=== PATIENT | female | born 1985 | race Caucasian/White ===

== ENCOUNTER → 2020-06-12 | Outpatient (CLI) | payer OTHER ==
--- NOTE | 2020-06-12 15:19 | US ---
EXAMINATION TYPE: Transabdominal DATE OF EXAM: 06/12/2020 2:53 PM COMPARISON: NONE CLINICAL HISTORY: O76 absent heart tones. EXAM PERFORMED: Transabdominal (TA) EXAM MEASUREMENTS: GESTATIONAL AGE / DATING Physician Established: (11 weeks/ 6day) EDC: 12/26/2020 Dates by LMP: (12 weeks/1 day) EDC: 12/24/2020 Dates by First Scan: No previous here Dates by Current Scan for: non viable IUP (11 weeks/1 day) MATERNAL ANATOMY Uterus: 14.9 x 7.8 x 6.9cm; two uterine fibroids seen MELINA: right myometrial fibroid = 4.1x 2.9 x 2.1c m; left myometrial fibroid = 3.5 x 4.1 x 2.8cm Right Ovary: not seen Left Ovary: 2.2 x 2.4 x 2.1cm Post CDS / Adnexa: wnl Presence of free fluid: no Presence of corpus luteal cyst: in left ovary = 1.4 x 13 x 1.2cm Presence of subchorionic bleed: hypoechoic area seen superior to gestational sac = 5.1 x 4.7 x 1.7cm GESTATION / SURVEY CRL: 4.3cm (11 weeks/1 day) Heart Rate: none detected by M Mode, PW Doppler, no color flow or Power color is seen in any elsy dy cavity Date of LMP: unsure Beta HcG (if available): NA Single intrauterine gestation with visualization of gestational sac and pole. No yolk sac seen. Low-lying gestational sac and pole with absent heart tones are consistent with intrauterine fe carroll demise. No free fluid. Probable corpus luteal cyst left ovary. Right ovary not seen with certainty. IMPRESSION: Findings consistent with intrauterine demise as detailed above.
== END | disposition home or self-care (01) ==
LOC: RADUSWWP 14:34
PROVIDERS: ATTEND Obstetrics & Gynecology
DX: O70.0 First degree perineal laceration during delivery (principal)
CPT/HCPCS: 76801

== ENCOUNTER → 2020-06-16 | Outpatient (CLI) | payer OTHER ==
[2020-06-16 10:06] LABS: Basophils % (A) 1 %; Eosinophils # (A) 0.2 k/uL (0-0.7); Eosinophils % (A) 2 %; HCT 41.8 % (34.0-46.0); HGB 13.7 gm/dL (11.4-16.0); Lymphocytes # (A) 2.2 k/uL (1.0-4.8); Lymphocytes % (A) 30 %; MCH 31.1 pg (25.0-35.0); MCHC 32.6 g/dL (31.0-37.0); MCV 95.3 fL (80.0-100.0); Mean Platelet Volume 6.6; Monocytes # (A) 0.4 k/uL (0-1.0); Monocytes % (A) 6 %; Neutrophils # (A) 4.4 k/uL (1.3-7.7); Neutrophils % (A) 60 %; Platelet Count 270 k/uL (150-450); RBC 4.39 m/uL (3.80-5.40); RDW 13.8 % (11.5-15.5); WBC 7.4 k/uL (3.8-10.6)
== END | disposition home or self-care (01) ==
LOC: LABPAT 09:15
PROVIDERS: ATTEND Obstetrics & Gynecology
DX: Z01.812 Encounter for preprocedural laboratory examination (principal); O02.1 Missed abortion; Z3A.00 Weeks of gestation of pregnancy not specified
CPT/HCPCS: 36415; 85025

== ENCOUNTER 2020-06-17 10:39 | Day surgery (SDC) | payer OTHER ==
[2020-06-13 09:34] VITALS: BMI 31.9
[~2020-06-17 10:39] MED LIST: DEXAMETHASONE SOD PHOSPHATE 4 MG/ML 1 ML VIAL IV ONE; HYDROmorphone 0.5 MG/0.5 ML SYRINGE IVP PRN; LACTATED RINGERS 1,000 ML IV SCH; ONDANSETRON 4 MG/2 ML VIAL IVP ONE; Pre Op ABX Message 1 EACH MISC MISCELLANE ONE; SCOPOLAMINE 1.5MG/72HR PATCH TRANSDERM ONE
[2020-06-17] MEDS ORDERED: LIDOCAINE 1% (10MG/ML) FOR IV START INTRADERMA ONE (11:42)
[2020-06-17] MEDS: MIDAZOLAM 2 MG/2 ML VIAL IV PRN ×2 (11:55→12:23)
--- NOTE | 2020-06-17 12:17 | P.PN ---
Progress Note - Text Progress Note Date: 06/17/20 Addendum to history and physical preoperative: The patient was seen on examining and counseled by myself on preoperatively and I agree with the H&P as documented by the physician's speech language assistant.
[2020-06-17] MEDS ORDERED: PHENYLEPHRINE-0.9% NACL SYG 1,000 MCG/10 ML SYRINGE ONE (12:25)
[2020-06-17] MEDS ORDERED: METHYLERGONOVINE 0.2 MG/ML 1 ML AMP ONE (12:25)
[2020-06-17] MEDS ORDERED: fentaNYL (PF) 50 MCG/ML 2 ML AMP ONE (12:25)
[2020-06-17] MEDS ORDERED: LIDOCAINE 1% INJ 10MG/ML (20 ML MDV) ONE (12:25)
[2020-06-17] MEDS ORDERED: PROPOFOL 10 MG/ML 20 ML VIAL IV ONE (12:25)
[2020-06-17] MEDS ORDERED: LIDOCAINE 1%-EPI 1:100,000 20 ML VIAL SUBMUCOSAL ONE ×2 (12:29→12:52)
[2020-06-17] MEDS ORDERED: Rhogam IMMUNE GLOBULIN 1,500 UNIT/1 ML IM ONE (13:11)
--- NOTE | 2020-06-17 13:16 | P.OP ---
Date of Procedure: 06/17/20 Preoperative Diagnosis: Missed at 12 weeks gestation Postoperative Diagnosis: Same Procedure(s) Performed: Suction dilation and curettage Anesthesia: [facility] Surgeon: Gissell Gaspar Estimated Blood Loss (ml): 100 IV fluids (ml): 500 Urine output (ml): 100 Pathology: other (Uterine contents) Condition: stable Disposition: PACU Operative Findings: On exam under anesthetic the uterus was larger than anticipated, approximately 14-15 week size. Uterine sound to 14 cm. Appropriate products of conception were obtained and suction D&C. Description of Procedure: After the patient was met in the preoperative holding area and all questions were answered, she was taken to the operating room where anesthetic was administered without incident. She was then positioned prepped and draped in the dorsal lithotomy position. Bladder was drained for 100 mL of clear urine. Exam under anesthetic was undertaken and the uterus was approximately 14-15 weeks' size. Speculum was placed in the vagina and the cervix was grasped anteriorly with a single-tooth tenaculum. Paracervical block with lidocaine plus epinephrine was placed. The uterus sounded to 14+ centimeters. The the cervix was then sequentially dilated with Hegar dilators to allow for passage of the 10-Setswana curved suction curet. The suction curet was introduced and the uterus was circumferentially suction curettaged. A large amount of tissue consistent with gestational age was obtained after multiple passes. The suction curet was then removed and multiple passes a sharp banjo curette was undertaken with minimal additional tissue obtained. Final pass with the suction curette was undertaken with minimal blood and tissue obtained. The curet was then removed and the cervix was then observed. No active bleeding was noted. Based on the greater than anticipated size of the uterus she was administered Methergine 0.25 mg IM 1 for the uterine tone. Patient was awoken from anesthetic without incident and transported recovery in good condition. Next Patient's blood type is A- and are RhIG is ordered.
[2020-06-17 13:22] VITALS: TEMP 97.2
[2020-06-17] MEDS ORDERED: LACTATED RINGERS 1,000 ML IV ONE (14:07)
[2020-06-17 14:29] VITALS: RESP 20
[2020-06-17 14:33] VITALS: BP 120/68; PULSE 92
== END 2020-06-17 14:51 | disposition home or self-care (01) ==
LOC: OR 10:39
PROVIDERS: ATTEND Obstetrics & Gynecology
DX: O02.1 Missed abortion (principal); Z3A.12 12 weeks gestation of pregnancy; Z83.6 Family history of other diseases of the respiratory system; Z82.49 Family history of ischemic heart disease and other diseases of the circulatory system; Z80.0 Family history of malignant neoplasm of digestive organs; Z80.41 Family history of malignant neoplasm of ovary
CPT/HCPCS: 86900; 86901; 88305; 86850; 59820; J2791; J2250; J1100; J2210; J2405; J2001; J3010; J2370; J2704

== ENCOUNTER 2021-04-15 16:30 | Inpatient (IN) | payer OTHER ==
[2021-04-15] MEDS ORDERED: DINOPROSTONE 10 MG INSERT.ER VAGINAL ONE (16:59)
[2021-04-15] MEDS ORDERED: LACTATED RINGERS 1,000 ML IV SCH (16:59)
[2021-04-15] MEDS ORDERED: BUTORPHANOL 1 MG/ML 1 ML VIAL IV PRN (16:59)
[2021-04-15] MEDS ORDERED: TERBUTALINE 1 MG/ML VIAL SQ PRN (17:25)
[2021-04-15] MEDS ORDERED: OXYTOCIN 10 UNIT/ML 1 ML VIAL IM PRN (17:25)
[2021-04-15] MEDS ORDERED: LIDOCAINE 1% (PF) 10 MG/ML (30 ML SDV) SQ PRN (17:25)
[2021-04-15] MEDS ORDERED: CARBOPROST TROMETHAMINE 250 MCG/ML 1 ML AMP IM PRN (17:25)
[2021-04-15] MEDS ORDERED: METHYLERGONOVINE 0.2 MG/ML 1 ML AMP IM PRN (17:25)
--- NOTE | 2021-04-15 17:25 | P.HPOB ---
History of Present Illness H&P Date: 04/15/21 Chief Complaint: -induced hypertension This is a 35-year-old 2 para 0010 woman who has an estimated due date of 04/22/2021. She is admitted at 39 weeks gestation for induction of labor secondary to -induced hypertension. She developed increasing blood pressures in the third trimester. She has been ruled out for superimposed preeclampsia. She takes labetalol 100 mg twice a day and her home blood pressures typically ranged in the 130s over 70s. She is also known group B strep positive and Rh-. Her cervix is unfavorable therefore she is being admitted for Cervidil ripening on in anticipation of a Pitocin induction of labor tomorrow morning. Her obstetric history is significant for a first trimester miscarriage with suction D&C in June 2020. Laboratory data: Blood type A-, antibody screen negative, rubella immune, VDRL nonreactive, hepatitis B surface antigen negative, HIV negative, gonorrhea and clinic cultures negative, glucose tolerance testing within normal limits, group B strep positive. She did receive Rh Ig On admission, blood pressure is 136/74. She reports feeling well. No headache or visual changes. No increase in lower extremity swelling or abdominal pain. She has had some occasional contractions and good movement. She denies leakage of fluids or vaginal bleeding. On examination the cervix is 1 cm dilated, 50% effaced and the vertex is in the -3 station. Cervidil is placed posterior to the cervix per protocol. status is currently category 2 heart tones with good variability and no decelerations however not a definitively reactive NST yet. Review of Systems All systems: negative Past Medical History Past Medical History: No Reported History History of Any Multi-Drug Resistant Organisms: None Reported Additional Past Surgical History / Comment(s): Suction D&C 2020 Past Anesthesia/Blood Transfusion Reactions: Motion Sickness Additional Past Anesthesia/Blood Transfusion Reaction / Comment(s): FIRST ANESTHESIA Smoking Status: Never smoker - Past Family History Mother Family Medical History: Deep Vein Thrombosis (DVT) Medications and Allergies Home Medications Medication Instructions Recorded Confirmed Type Aspirin [Adult Low Dose Aspirin EC] 81 mg PO DAILY 04/15/21 04/15/21 History Labetalol HCl 100 mg PO BID 04/15/21 04/15/21 History Allergies Allergy/AdvReac Type Severity Reaction Status Date / Time No Known Allergies Allergy Verified 04/15/21 16:57 Exam Intake and Output 04/15/21 04/15/21 04/15/21 06:59 14:59 22:59 Other: Weight 127.913 kg See HPI Assessment and Plan (1) 39 weeks gestation of Current Visit: Yes Status: Acute Code(s): Z3A.39 - 39 WEEKS GESTATION OF SNOMED Code(s): 32626230 (2) Advanced maternal age (AMA) in Current Visit: Yes Status: Acute Code(s): NEA2114 - SNOMED Code(s): 515400632 (3) GBS (group B Streptococcus carrier), +RV culture, currently Current Visit: Yes Status: Acute Code(s): O99.820 - STREPTOCOCCUS B CARRIER STATE COMPLICATING SNOMED Code(s): 2076241325122 (4) induced hypertension Current Visit: Yes Status: Acute Code(s): O13.9 - GESTATIONAL HTN W/O SIGNIFICANT PROTEINURIA, UNSP TRIMESTER SNOMED Code(s): 13427123 (5) Rh negative, maternal Current Visit: Yes Status: Acute Code(s): O26.899 - OTH RELATED CONDITIONS, UNSPECIFIED TRIMESTER; Z67.91 - UNSPECIFIED BLOOD TYPE, RH NEGATIVE SNOMED Code(s): 182196155 Plan: 35-year-old 2 para 0010 woman admitted at 39 weeks gestation for cervical ripening head of Pitocin induction of labor indicated for - induced hypertension with no evidence of superimposed preeclampsia. She is group B strep positive and group B strep prophylactic antibiotics will be initiated on with onset of active labor, rupture of membranes or with initiation of Pitocin as indicated.
[2021-04-15 17:41] LABS: Basophils % (A) 0 %; Eosinophils # (A) 0.1 k/uL (0-0.7); Eosinophils % (A) 1 %; HCT 39.9 % (34.0-46.0); HGB 13.1 gm/dL (11.4-16.0); Lymphocytes # (A) 1.6 k/uL (1.0-4.8); Lymphocytes % (A) 18 %; MCH 30.9 pg (25.0-35.0); MCHC 32.7 g/dL (31.0-37.0); MCV 94.3 fL (80.0-100.0); Mean Platelet Volume 6.9; Monocytes # (A) 0.4 k/uL (0-1.0); Monocytes % (A) 5 %; Neutrophils # (A) 6.6 k/uL (1.3-7.7); Neutrophils % (A) 73 %; Platelet Count 269 k/uL (150-450); RBC 4.24 m/uL (3.80-5.40); RDW 13.6 % (11.5-15.5)
[2021-04-16] MEDS ORDERED: PENICILLIN G POTASSIUM 5,000,000 UNIT in DEXTROSE 5% IN WATER 100 ML IVPB ONE ×2 (06:00)
[2021-04-16] MEDS: LACTATED RINGERS 1,000 ML IV SCH ×3 (06:36→15:22)
[2021-04-16] MEDS: OXYTOCIN 30 UNITS/500 ML NS 30 UNIT in SALINE 1 500ML.BAG IV SCH ×2 (06:42→22:02)
[2021-04-16] MEDS: LABETALOL 100 MG TAB PO SCH ×2 (08:13→23:57)
[2021-04-16] MEDS: PENICILLIN G POTASSIUM 2,500,000 UNIT in DEXTROSE 5% IN WATER 100 ML IVPB SCH ×10 (12:30→22:01)
[2021-04-16] MEDS ORDERED: ROPIVACAINE 100 MG, fentaNYL (PF). 200 MCG in SODIUM CHLORIDE 0.9% 76 ML EPIDURAL ONE (13:52)
--- NOTE | 2021-04-16 16:49 | P.PN ---
Progress Note - Text Progress Note Date: 04/16/21 Gina is status post Cervidil placement through the night. This morning she was 1-2 cm dilated and 80% effaced. She underwent artificial rupture of membranes and Pitocin was initiated. Group B strep prophylactic antibiotics have been initiated. She is currently 4 cm dilated with significant Formation noted. Pitocin is at 24 mU/m. heart tones are category 1. She is comfortable with an epidural anesthetic.
[2021-04-16] MEDS ORDERED: CITRIC ACID-SODIUM CITRATE 15 ML CUP PO ONE (20:21)
[2021-04-16] MEDS ORDERED: ceFAZolin 3 GM in SODIUM CHLORIDE 0.9% 100 ML IVPB ONE (20:21)
[2021-04-16] MEDS ORDERED: KETOROLAC 15 MG/ML 1 ML VIAL ONE (20:44)
[2021-04-16] MEDS ORDERED: ONDANSETRON 4 MG/2 ML VIAL ONE (20:44)
[2021-04-16] MEDS ORDERED: METHYLERGONOVINE 0.2 MG/ML 1 ML AMP ONE (20:44)
[2021-04-16] MEDS ORDERED: OXYTOCIN 30 UNITS/500 ML NS BAG IV ONE (20:44)
[2021-04-16] MEDS ORDERED: DEXAMETHASONE SOD PHOSPHATE 10 MG/ML 1 ML VIAL ONE (20:44)
[2021-04-16] MEDS ORDERED: .MORPHINE SULFATE (INJ) 10 MG/ML SYRINGE ONE (20:44)
[2021-04-16] MEDS ORDERED: MORPHINE SULFATE (PF) 0.3 MG/0.3 ML SYR ONE (20:44)
[2021-04-16] MEDS ORDERED: diphenhydrAMINE 50 MG/ML 1 ML VIAL IVP PRN ×2 (21:36)
[2021-04-16] MEDS ORDERED: ONDANSETRON 4 MG/2 ML VIAL IVP PRN (21:36)
[2021-04-16] MEDS ORDERED: ZOLPIDEM 5 MG TAB PO PRN (21:36)
[2021-04-16] MEDS ORDERED: NALOXONE 0.4 MG/ML 1 ML VIAL IV PRN (21:36)
[2021-04-16] MEDS ORDERED: METOCLOPRAMIDE 5 MG/ML 2 ML VIAL IVP PRN (21:36)
[2021-04-16] MEDS ORDERED: diphenhydrAMINE 50 MG CAP PO PRN (21:36)
[2021-04-16] MEDS ORDERED: diphenhydrAMINE 25 MG CAP PO PRN (21:36)
[2021-04-16] MEDS ORDERED: SIMETHICONE 80 MG CHEWABLE PO PRN (21:36)
--- NOTE | 2021-04-16 21:36 | P.OP ---
Date of Procedure: 04/16/21 Preoperative Diagnosis: Intrauterine at 39 weeks gestation -induced hypertension Active phase arrest of labor Group B strep positive Postoperative Diagnosis: Intrauterine at 38 weeks gestation -induced hypertension Arrestive active phase of labor Occiput posterior Nuchal cord 1 Fibroid uterus Procedure(s) Performed: Primary low transverse section Anesthesia: epidural Surgeon: Gissell Gaspar Label Maker #1: Michel Townsend Estimated Blood Loss (ml): 445 IV fluids (ml): 300 Urine output (ml): 100 Pathology: none sent Condition: stable Disposition: floor Indications for Procedure: This is a 35-year-old 2 para 0 woman who is admitted at 39 weeks gestation for induction of labor secondary to -induced hypertension. She had an unfavorable cervix and was admitted for Cervidil cervical ripening. She was 1 cm dilated when the Cervidil. 12 hours later she was uncomfortable with cramping and her cervix was 1.5-2 cm dilated. Pitocin was initiated per protocol and artificial rupture membranes was undertaken. Pitocin was increased and group B strep prophylactic antibiotics were administered. She did reach 4 cm dilated however despite increasing Pitocin to 30 mU/m the patient did not progress past 4 cm dilated over the period of many hours. She did develop significant Formation and occiput posterior position was suspected. Options for ongoing labor versus proceeding to primary low transverse section were reviewed with the patient and her . Risks including bleeding, transfusion, infection, accidental injury to infant and/or maternal structures all reviewed in detail. All questions were answered and the decision was made to proceed to primary low transverse section. Operative Findings: Male in the occiput posterior, asynclitic position with a nuchal cord 1. Apgars were 8 at 1 minute and 9 at 5 minutes and weight was 7 lbs. 13 oz., 3550 g. Anterior multiple small fibroids were appreciated. Normal-appearing bilateral fallopian tubes and ovaries. Intact, three-vessel cord placenta. Description of Procedure: After shared decision-making and informed consent was obtained the patient's epidural anesthetic was bolused. She was transported the operating room where she was positioned, prepped and draped in the dorsal supine position with a leftward tilt. Anesthetic was confirmed adequate and a low transverse skin incision was made. This carried down to the underlying fascia both sharply and with the electrocautery. Fascia incised in the midline and extended bilaterally with the Quan scissors. Inferior and superior aspect of the fascial incision were grasped and the underlying rectus muscles dissected off sharply. Rectus muscles were bluntly in the midline and the peritoneum was identified, tented up and entered sharply. The peritoneal incision was extended inferiorly and superiorly with good visualization the bladder. The bladder blade was placed and the vesicouterine peritoneum was identified, tented up and entered sharply. There firm nodules consistent with small fibroids noted in the anterior low uterine segment. Low uterine incision was made and carried down to the underlying membranes sharply. Membranes were ruptured and clear fluid was noted. Incision was extended bilaterally bluntly. The 's head was then delivered from the pelvis and the asynclitic occiput posterior position. When the head was delivered and nuchal cord 1 was reduced. Nose and mouth were bulb suctioned and the rest the infant was delivered onto the field. Nose and mouth were further bulb suctioned and the infant was taken to the warmer after the cord was clamped and cut. An intact, three-vessel cord placenta was then manually removed. The uterus was exteriorized and cleared of all clot and debris. Uterine incision was closed in a running locked fashion with 0 Vicryl suture followed by second imbricating layer of the same. The uterine incision was inspected and noted to be hemostatic. Uterus was returned to the abdomen and the gutters were cleared of all clot and debris. Uterine incision was reinspected and hemostasis was noted. Fascial edges, peritoneal edges and rectus muscles were inspected and Bovie electrocautery was utilized were needed for hemostasis. Peritoneum was reapproximated in the midline. The fascia was then closed in a running fashion with 0 Vicryl suture. Subcuticular tissue was copiously suction irrigated and reapproximated with 3-0 chromic. Skin was then closed in a subcutaneous fashion with 4-0 Vicryl suture. All counts reported to me as correct by the operating room staff. Patient received Pitocin following the third stage of labor as well as a single dose of Methergine for mild atony. Her blood pressure remained stable throughout the case. She was transported to recovery area in good condition.
[2021-04-17] MEDS: ACETAMINOPHEN TAB 500 MG TAB PO SCH ×5 (02:11→23:56)
[2021-04-17] MEDS: LACTATED RINGERS 1,000 ML IV SCH ×2 (02:12→19:28)
[2021-04-17] MEDS ORDERED: Rhogam IMMUNE GLOBULIN 1,500 UNIT/1 ML IM ONE (05:12)
[2021-04-17] MEDS: KETOROLAC 15 MG/ML 1 ML VIAL IVP SCH ×3 (05:13→23:35)
[2021-04-17] MEDS: IBUPROFEN 600 MG TAB PO SCH ×3 (05:36→18:58)
[2021-04-17 07:54] LABS: Basophils % (A) 0 %; Eosinophils # (A) 0.2 k/uL (0-0.7); Eosinophils % (A) 1 %; HCT 37.6 % (34.0-46.0); HGB 12.3 gm/dL (11.4-16.0); Lymphocytes # (A) 1.4 k/uL (1.0-4.8); Lymphocytes % (A) 9 %; MCH 31.3 pg (25.0-35.0); MCHC 32.8 g/dL (31.0-37.0); MCV 95.4 fL (80.0-100.0); Mean Platelet Volume 7.5; Monocytes # (A) 0.8 k/uL (0-1.0); Monocytes % (A) 5 %; Neutrophils # (A) 12.9 k/uL (1.3-7.7); Neutrophils % (A) 83 %; Platelet Count 247 k/uL (150-450); RBC 3.94 m/uL (3.80-5.40); RDW 13.3 % (11.5-15.5); WBC 15.4 k/uL (3.8-10.6)
[2021-04-17] MEDS: SENNOSIDES-DOCUSATE SODIUM 1 EACH TAB PO SCH ×2 (08:00→21:24)
--- NOTE | 2021-04-17 08:53 | P.PN ---
Progress Note - Text Date: 04/17/2021 Time:[ 06:06] The patient is status post section Vital signs stable VAS: 0-10 Patient has no complaints of pain. The patient incurred some minimal itching yesterday, this itching is now subsiding. Pain meds to be managed by service.
[2021-04-17] MEDS: LABETALOL 100 MG TAB PO SCH ×2 (09:40→23:35)
--- NOTE | 2021-04-17 10:18 | P.PNOBGPC ---
Subjective - Subjective Principal diagnosis: -induced hypertension Interval history: Postop day one half status post primary low transverse section secondary of arrest of active phase of labor. She is feeling very well with pain well-controlled. Her labetalol has been held for low blood pressures postoperative period Patient reports: Reports appetite normal, Reports voiding normally, Reports pain well controlled, Reports ambulating normally, Denies dizzy ambulation, Denies nauseated : doing well Objective - Vital Signs Latest vital signs: Vital Signs Temp Pulse Resp BP Pulse Ox 04/17/21 08:00 97.5 F L 85 18 117/72 96 04/17/21 04:00 98.2 F 71 17 137/76 97 04/16/21 23:34 96.9 F L 75 16 129/57 97 04/16/21 23:04 97.0 F L 75 18 138/63 97 04/16/21 22:34 96.9 F L 81 18 125/59 97 04/16/21 22:19 82 16 128/62 95 04/16/21 22:04 79 18 136/61 97 04/16/21 21:49 97.4 F L 77 18 138/65 97 04/16/21 21:34 97.9 F 73 18 143/63 97 Intake and Output 04/16/21 04/17/21 04/17/21 22:59 06:59 14:59 Intake Total 30.667 Output Total 546 450 Balance -515.333 -450 Intake: Intake, IV Titration 30.667 Amount Oxytocin 30 Units/500 ml 30.667 Ns 30 unit In Saline 1 500ml.bag @ Per Protocol IV .[facility]0M [facility] Rx#:[id number] Output: Urine 100 450 Output, Quantitative 446 Blood Loss Other: Voiding Method Indwelling Catheter Indwelling Catheter - Exam Lungs: bilateral: normal Extremities: Present: normal, edema Abdomen: Present: normal appearance, soft. Absent: tenderness Incision: Present: normal, dry, intact, dressed Uterus: Present: normal - Labs Labs: Abnormal Lab Results - Last 24 Hours (Table) 04/17/21 Range/Units 07:42 WBC 15.4 H (3.8-10.6) k/uL Neutrophils # 12.9 H (1.3-7.7) k/uL Assessment and Plan (1) 39 weeks gestation of Current Visit: Yes Status: Acute Code(s): Z3A.39 - 39 WEEKS GESTATION OF SNOMED Code(s): 71523173 (2) Advanced maternal age (AMA) in Current Visit: Yes Status: Acute Code(s): EGF3622 - SNOMED Code(s): 771619358 (3) GBS (group B Streptococcus carrier), +RV culture, currently Current Visit: Yes Status: Acute Code(s): O99.820 - STREPTOCOCCUS B CARRIER STATE COMPLICATING SNOMED Code(s): 0569420394785 (4) induced hypertension Current Visit: Yes Status: Acute Code(s): O13.9 - GESTATIONAL HTN W/O SIGNIFICANT PROTEINURIA, UNSP TRIMESTER SNOMED Code(s): 13960056 (5) Rh negative, maternal Current Visit: Yes Status: Acute Code(s): O26.899 - OTH RELATED CONDITIONS, UNSPECIFIED TRIMESTER; Z67.91 - UNSPECIFIED BLOOD TYPE, RH NEGATIVE SNOMED Code(s): 174718179 (6) Arrested active phase of labor Current Visit: Yes Status: Acute Code(s): O62.1 - SECONDARY UTERINE INERTIA SNOMED Code(s): 20574486 (7) S/P section Current Visit: Yes Status: Acute Code(s): Z98.891 - HISTORY OF UTERINE SCAR FROM PREVIOUS SURGERY SNOMED Code(s): 985090638 Plan: Postop day 1 status post primary low transverse section. She is recovering well. Hold labetalol for normal blood pressures. May shower and remove dressing at 24 hours. Anticipate discharge home in the next 24-48 hours.
[2021-04-18] MEDS: KETOROLAC 15 MG/ML 1 ML VIAL IVP SCH (02:26)
[2021-04-18] MEDS: LACTATED RINGERS 1,000 ML IV SCH (02:26)
[2021-04-18 02:32] VITALS: RESP 16; TEMP 97.4
[2021-04-18] MEDS: IBUPROFEN 600 MG TAB PO SCH ×3 (03:37→09:16)
[2021-04-18] MEDS: ACETAMINOPHEN TAB 500 MG TAB PO SCH ×2 (06:59→13:10)
[2021-04-18 08:21] VITALS: BP 122/76; PULSE 72
[2021-04-18] MEDS: SENNOSIDES-DOCUSATE SODIUM 1 EACH TAB PO SCH (09:16)
--- NOTE | 2021-04-18 11:46 | P.DS ---
Providers Date of admission: 04/15/21 16:30 Expected date of discharge: 04/18/21 Attending physician: Gissell Gaspar Primary care physician: Stated None - Discharge Diagnosis(es) (1) S/P section Current Visit: Yes Status: Acute Hospital Course: The patient is a 35-year-old 2 para 0010 admitted at 39-0/7 weeks for induction secondary to -induced hypertension. There is no evidence of preeclampsia upon admission. She has been on labetalol 100 mg twice daily with normal blood pressures. She is also known to be group B strep positive as well as Rh- and received RhoGAM at 28 weeks. She was admitted for Cervidil cervical ripening with an unfavorable cervix. Following Cervidil, she underwent artificial rupture of membranes and had Pitocin augmentation started. She made progress to approximately 4 cm of dilation with an epidural in place at which time she arrested further dilation and descent for many hours. The decision was made to proceed to the operating room for primary low-transverse section which was carried out in an uncomplicated fashion. She was delivered of a viable 7 lbs. 13 oz. baby boy with Apgars of 8 at 1 minute and 9 at 5 minutes. Her and postoperative course was unremarkable with vital signs remaining stable, no issues with blood pressure despite no longer using labetalol, and she was afebrile throughout. She was deemed stable for discharge on and postoperative day #2 and was discharged home to follow-up in the office in 2 weeks for an incision check and 6 weeks routinely. Discharge instructions included calling for any significantly increased bleeding or foul- smelling lochia, significantly increased fever or abdominal pain, perineal complaints, breast complaints, incisional complaints, or anything else that concerned her. She is additionally instructed to do no heavy lifting and to abstain from anything in the vagina to include intercourse for at least 6 weeks time. She was last instructed to do no driving until off of all pain medications or 2 weeks' time, whichever came first. She understood her instructions and agrees to follow up as noted above. Discharge medications included continued vitamins as she has opted to breast-feed. She was otherwise to use [id number] analgesic pain medications as needed. She was provided a prescription for Tylenol No. 3, 1-2 by mouth every 6 hours when necessary pain, #20 dispensed with no refills. Maternal blood type is A- and cord blood was sent for evaluation for the necessity of RhoGAM prior to discharge. Rubella status is immune. Discharge hemoglobin and hematocrit were 12.3 and 37.6 respectively. Procedures: #1. Cervidil cervical ripening #2. Artificial rupture of membranes #3. Pitocin induction #4. Epidural analgesia #5. Primary low-transverse section Patient Condition at Discharge: Stable Plan - Discharge Summary New Discharge Prescriptions: No Action Labetalol HCl 100 mg PO BID Aspirin [Adult Low Dose Aspirin EC] 81 mg PO DAILY Discharge Medication List Aspirin [Adult Low Dose Aspirin EC] 81 mg PO DAILY 04/15/21 [History] Labetalol HCl 100 mg PO BID 04/15/21 [History] Follow up Appointment(s)/Referral(s): Gissell Gaspar MD [STAFF PHYSICIAN] - 2 Weeks Discharge Disposition: HOME SELF-CARE
[2021-04-18] MEDS: LABETALOL 100 MG TAB PO SCH (16:24)
== END 2021-04-18 16:10 | disposition home or self-care (01) | DRG 788 ==
LOC: 4FBP 16:30 → MERGE 04-22 13:30
PROVIDERS: ADMIT Obstetrics & Gynecology; ATTEND Obstetrics & Gynecology
PROC: 3E033VJ Introduction of Other Hormone into Peripheral Vein, Percutaneous Approach (ICD-10-PCS; principal; 2021-04-16 20:52)
PROC: 10D00Z1 Extraction of Products of Conception, Low, Open Approach (ICD-10-PCS; principal; 2021-04-16 20:52)
PROC: 3E0P7VZ Introduction of Hormone into Female Reproductive, Via Natural or Artificial Opening (ICD-10-PCS; principal; 2021-04-16 20:52)
DX: O13.4 Gestational [pregnancy-induced] hypertension without significant proteinuria, complicating childbirth (principal); O34.13 Maternal care for benign tumor of corpus uteri, third trimester; D25.9 Leiomyoma of uterus, unspecified; O62.1 Secondary uterine inertia; O69.81X0 Labor and delivery complicated by cord around neck, without compression, not applicable or unspecified; O99.824 Streptococcus B carrier state complicating childbirth; Z3A.39 39 weeks gestation of pregnancy; Z79.82 Long term (current) use of aspirin; Z37.0 Single live birth; Z83.2 Family history of diseases of the blood and blood-forming organs and certain disorders involving the immune mechanism; Z98.890 Other specified postprocedural states; Z79.899 Other long term (current) drug therapy
CPT/HCPCS: 85025; 85461; 86850; 86900; 86901

== ENCOUNTER 2023-08-26 05:54 | Inpatient (IN) | payer OTHER ==
[2023-08-18 15:23] VITALS: BMI 45.8
[2023-08-26] MEDS ORDERED: OXYTOCIN 10 UNIT/ML 1 ML VIAL IM PRN (06:05)
[2023-08-26] MEDS ORDERED: METHYLERGONOVINE 0.2 MG/ML 1 ML AMP IM PRN (06:05)
[2023-08-26] MEDS ORDERED: LIDOCAINE 0.5% (PF) 5 MG/ML (50 ML SDV) SQ PRN (06:05)
[2023-08-26] MEDS ORDERED: miSOPROStoL 200 MCG TAB RECTAL PRN (06:05)
[2023-08-26] MEDS ORDERED: miSOPROStoL 200 MCG TAB PO PRN (06:05)
[2023-08-26] MEDS ORDERED: CARBOPROST TROMETHAMINE 250 MCG/ML 1 ML AMP IM PRN (06:05)
[2023-08-26] MEDS ORDERED: TERBUTALINE 1 MG/ML VIAL SQ PRN (06:05)
[2023-08-26] MEDS ORDERED: TRANEXAMIC 1,000 MG/100ML-NACL 1,000 MG in EMPTY BAG 1 BAG IV PRN (06:05)
[2023-08-26] MEDS ORDERED: OXYTOCIN 30 UNITS/500 ML NS 30 UNIT in SALINE 1 500ML.BAG IV SCH (06:15)
[2023-08-26] MEDS: LACTATED RINGERS 1,000 ML IV SCH ×2 (06:28→10:32)
[2023-08-26 06:41] LABS: Basophils % (A) 0 %; Eosinophils # (A) 0.2 k/uL (0-0.7); Eosinophils % (A) 2 %; HGB 12.2 gm/dL (11.4-16.0); Lymphocytes % (A) 22 %; MCHC 33.1 g/dL (31.0-37.0); MCV 93.8 fL (80.0-100.0); Mean Platelet Volume 7.2; Monocytes # (A) 0.5 k/uL (0-1.0); Monocytes % (A) 5 %; Neutrophils # (A) 6.1 k/uL (1.3-7.7); Neutrophils % (A) 69 %; Platelet Count 290 k/uL (150-450); RBC 3.94 m/uL (3.80-5.40); RDW 14.1 % (11.5-15.5); WBC 8.9 k/uL (3.8-10.6)
[2023-08-26] MEDS: CITRIC ACID-SODIUM CITRATE 15 ML CUP PO ONE (07:26)
[2023-08-26] MEDS: ceFAZolin 3 GM in SODIUM CHLORIDE 0.9% 100 ML IVPB ONE (07:27)
[2023-08-26] MEDS ORDERED: NALBUPHINE 10 MG/ML (10 ML MDV) ONE (08:00)
[2023-08-26] MEDS ORDERED: MORPHINE SULFATE (PF) 0.3 MG/0.3 ML SYR ONE (08:00)
[2023-08-26] MEDS ORDERED: ONDANSETRON 4 MG/2 ML VIAL ONE (08:00)
[2023-08-26] MEDS ORDERED: KETOROLAC 30 MG/ML 1 ML VIAL ONE (08:00)
[2023-08-26] MEDS ORDERED: ePHEDrine 50 MG/ML 1 ML VIAL ONE (08:00)
[2023-08-26] MEDS ORDERED: OXYTOCIN 30 UNITS/500 ML NS BAG IV ONE (08:00)
--- NOTE | 2023-08-26 08:06 | P.HPOB ---
History of Present Illness H&P Date: 08/26/23 Chief Complaint: History of previous low transverse section, admitted for repeat This is a 37 year old 3 para 1011 woman who is admitted at 39 weeks gestation for scheduled repeat low transverse section. Her has been complicated by gestational hypertension has been managed with labetalol 200 mg twice a day with good control. She is also advanced maternal age and known Rh-. She declines trial of labor. Obstetric history: Term primary low transverse section 2020, gestational hypertension Laboratory data: Blood type A-, antibody screen negative, rubella immune, VDRL nonreactive, hepatitis B and hepatitis C nonreactive, HIV negative, gonorrhea and clinic cultures negative, glucose tolerance testing within normal limits, group B strep positive. She did receive Rogaine per protocol and Tdap. Review of Systems All systems: negative Past Medical History Past Medical History: No Reported History Additional Past Medical History / Comment(s): HTN while , eczema. "I have a nodule on Thyroid." History of Any Multi-Drug Resistant Organisms: None Reported Past Surgical History: No Surgical Hx Reported Additional Past Surgical History / Comment(s): Suction D&C 2020 Past Anesthesia/Blood Transfusion Reactions: Motion Sickness Additional Past Anesthesia/Blood Transfusion Reaction / Comment(s): FIRST ANESTHESIA Past Psychological History: No Psychological Hx Reported Smoking Status: Never smoker Past Alcohol Use History: None Reported Past Drug Use History: None Reported - Past Family History Mother Family Medical History: Deep Vein Thrombosis (DVT) Additional Family Medical History / Comment(s): Mother had DVT after . Medications and Allergies Home Medications Medication Instructions Recorded Confirmed Type Aspirin [Adult Low Dose Aspirin EC] 81 mg PO [facility] 04/15/21 08/18/23 History Labetalol HCl 200 mg PO BID 04/15/21 08/18/23 History Claritin(Unknown Dose) 1 dose PO 08/18/23 08/18/23 History Fluticasone Nasal Lee [Flonase 2 spray EA NOSTRIL QA 08/18/23 08/18/23 History Nasal Lee] (Unknown Dose) 1 dose PO 08/18/23 History Allergies Allergy/AdvReac Type Severity Reaction Status Date / Time latex Allergy Rash/Hives Verified 08/26/23 06:03 Exam Intake and Output 08/25/23 08/26/23 08/26/23 22:59 06:59 14:59 Other: Weight 140.614 kg Targeted physical exam is performed. This is a pleasant, visibly gravid female in no acute distress. HEENT exam is unremarkable. Her breathing is unlabored and her heart is a regular rate and rhythm. Her abdomen is obese gravid and nontender. Pelvic exam deferred. She has 1+ bilateral lower extremity edema. heart tones are category 1 and she is not regularly lisette. Results Result Diagrams: 08/26/23 06:25 Assessment and Plan (1) 39 weeks gestation of Current Visit: No Status: Acute Code(s): Z3A.39 - 39 WEEKS GESTATION OF SNOMED Code(s): 07571370 (2) Advanced maternal age (AMA) in Current Visit: No Status: Acute Code(s): SHC8240 - SNOMED Code(s): 169153755 (3) GBS (group B Streptococcus carrier), +RV culture, currently Current Visit: No Status: Acute Code(s): O99.820 - STREPTOCOCCUS B CARRIER STATE COMPLICATING SNOMED Code(s): 6338216700064 (4) induced hypertension Current Visit: No Status: Acute Code(s): O13.9 - GESTATIONAL HTN W/O SIGNIF ICANT PROTEINURIA, UNSP TRIMESTER SNOMED Code(s): 03298158 (5) Rh negative, maternal Current Visit: No Status: Acute Code(s): O26.899 - OTH RELATED CONDITIONS, UNSPECIFIED TRIMESTER; Z67.91 - UNSPECIFIED BLOOD TYPE, RH NEGATIVE SNOMED Code(s): 738205926 (6) History of Current Visit: Yes Status: Acute Code(s): Z98.891 - HISTORY OF UTERINE SCAR FROM PREVIOUS SURGERY SNOMED Code(s): 939289906 Plan: 37-year-old 3 para 1011 woman admitted for planned repeat low transverse section. She has declines trial of labor. The procedure has been reviewed with the tail with her in the office setting and risks include bleeding, transfusion, infection, damage to bowel, bladder, ureters and/or other maternal and/or infant structures. Patient understands these risks and consent has been obtained. She is known group B strep positive and Rh-.
[2023-08-26] MEDS ORDERED: NALOXONE 0.4 MG/ML 1 ML VIAL IV PRN (09:11)
[2023-08-26] MEDS ORDERED: diphenhydrAMINE 50 MG/ML 1 ML VIAL IVP PRN ×2 (09:11)
[2023-08-26] MEDS ORDERED: SIMETHICONE 80 MG CHEWABLE PO PRN (09:11)
[2023-08-26] MEDS ORDERED: HYDROmorphone 1 MG/ML 1 ML SYRINGE IVP PRN (09:11)
[2023-08-26] MEDS ORDERED: ONDANSETRON 4 MG/2 ML VIAL IVP PRN (09:11)
[2023-08-26] MEDS ORDERED: ZOLPIDEM 5 MG TAB PO PRN (09:11)
[2023-08-26] MEDS ORDERED: diphenhydrAMINE 25 MG CAP PO PRN (09:11)
[2023-08-26] MEDS ORDERED: diphenhydrAMINE 50 MG CAP PO PRN (09:11)
--- NOTE | 2023-08-26 09:11 | P.OP ---
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 complicated by gestational hypertension, advanced maternal age and Rh- status. Operative Findings: Male infant in the vertex presentation occiput transverse. Apgars 9 at 1 minute and 9 at 5 minutes weighing 8 lbs. 4 oz., 3750 g. Normal-appearing maternal uterus, bilateral fallopian tubes and ovaries. Intact, three-vessel cord placenta. Description of Procedure: After the patient was met preoperatively and all questions were answered, she w as taken to the operating room where spinal anesthetic was administered without incident. She was then positioned, prepped and draped in the dorsal supine position with a leftward tilt. Herron catheter was placed. After anesthetic was confirmed adequate, a low transverse skin incision was made following the pre- existing scar. This was carried down to the underlying fascia both sharply and with the electrocautery. The fascia was then incised in the midline and extended bilaterally with the Quan scissors. The superior aspect of the fascial incision was elevated and the underlying rectus muscles dissected off sharply and with the electrocautery. The inferior aspect of the fascial incision was also elevated and the underlying rectus muscles dissected off sharply. The muscles were adherent in the midline. These were bluntly and the peritoneum was tented up with hemostats. The peritoneum was entered sharply with the Metzenbaum scissors. The peritoneal incision was extended inferiorly and superiorly with good visualization of the bladder. The Drew self retaining ring retractor was placed. The bladder blade was placed. The vesicouterine peritoneum was identified, tented up and entered sharply, the bladder flap was created both sharply and digitally. A low transverse uterine incision was then made sharply and carried down to the underlying amniotic membranes. Membranes were ruptured and clear fluid was noted. The uterine incision was extended bilaterally bluntly. The 's head was delivered from the incision with difficulty. The nose and mouth were bulb suctioned. The rest of the was delivered onto the field without difficulty. And cut and the infant was taken to the warmer. An intact, three-vessel cord placenta was then manually removed .. The uterus was cleared of all clot and debris. The uterine incision was delineated with Higginbotham clamps. The uterine incision was then closed in a running locked fashion with 0 Vicryl suture. Additional [id number] sutures were placed where necessary along the incision for hemostasis. The gutters were cleared of all clot and debris. The uterine incision was reinspected and Bovie electrocautery was utilized were necessary for hemostasis. The fascial edges, peritoneal edges and rectus muscles were inspected and Bovie electrocautery utilized were necessary for hemostasis. The fascia was then closed in a running fashion with 0 Vicryl suture. The subcuticular tissue was copiously suction irrigated and Bovie electrocautery utilized were necessary for hemostasis. 3-0 Vicryl suture was utilized to reapproximate the subcuticular tissue. The skin was then closed in a subcutaneous fashion with 4-0 Vicryl suture. All counts reported to me as correct by the operating room staff at the end of the procedure. The patient received antibiotics preoperatively and Pitocin following cord clamp. Mother and were both transported from the room in stable condition.
[2023-08-26] MEDS: ACETAMINOPHEN TAB 500 MG TAB PO SCH (11:28)
[2023-08-26] MEDS: METOCLOPRAMIDE 5 MG/ML 2 ML VIAL IVP PRN (12:48)
[2023-08-26] MEDS: IBUPROFEN 600 MG TAB PO SCH (15:44)
[2023-08-26] MEDS: Rhogam IMMUNE GLOBULIN 1,500 UNIT/1 ML IM ONE (17:49)
[2023-08-26] MEDS ORDERED: IBUPROFEN IV 800 MG in SODIUM CHLORIDE 0.9% 250 ML IV PRN (18:00)
[2023-08-26] MEDS: SENNOSIDES-DOCUSATE SODIUM 1 EACH TAB PO SCH (21:26)
[2023-08-27 06:54] LABS: Basophils % (A) 0 %; Eosinophils # (A) 0.1 k/uL (0-0.7); Eosinophils % (A) 1 %; HCT 34.9 % (34.0-46.0); HGB 10.9 gm/dL (11.4-16.0); Lymphocytes # (A) 1.9 k/uL (1.0-4.8); Lymphocytes % (A) 20 %; MCH 30.5 pg (25.0-35.0); MCHC 31.3 g/dL (31.0-37.0); MCV 97.5 fL (80.0-100.0); Mean Platelet Volume 7.4; Monocytes # (A) 0.5 k/uL (0-1.0); Monocytes % (A) 6 %; Neutrophils # (A) 6.7 k/uL (1.3-7.7); Neutrophils % (A) 71 %; Platelet Count 216 k/uL (150-450); RBC 3.58 m/uL (3.80-5.40); RDW 14.7 % (11.5-15.5); WBC 9.4 k/uL (3.8-10.6)
--- NOTE | 2023-08-27 07:00 | P.PN ---
Progress Note - Text Progress Note Date: 08/27/23 Postoperative day 1 status post section under spinal anesthesia, and intrathecal morphine given for postoperative analgesia, patient doing well, there is no anesthesia related complications, Patient had no headache, vital signs stable , Assessment and plan= postop day 1 status post , doing well there is no anesthesia related complication.
--- NOTE | 2023-08-27 09:33 | P.PNOBGPC ---
Subjective - Subjective Principal diagnosis: Status post repeat low transverse postop day 1 Interval history: Patient seen and examined. Denies nausea, vomiting, chest pain, shortness of breath or calf pain. Patient reports: Reports appetite normal, Reports voiding normally, Reports pain well controlled, Reports ambulating normally : doing well Objective - Vital Signs Latest vital signs: Vital Signs Temp Pulse Resp BP Pulse Ox 08/27/23 08:00 98.3 F 81 16 136/84 98 08/27/23 00:00 98.4 F 73 16 117/78 98 08/26/23 20:00 97.8 F 69 16 123/78 97 08/26/23 15:51 97.4 F L 74 17 122/74 97 08/26/23 11:10 96.5 F L 74 16 120/59 99 08/26/23 10:55 69 17 116/55 98 08/26/23 10:40 74 17 110/59 97 08/26/23 10:25 71 17 105/52 08/26/23 10:10 68 17 113/55 97 08/26/23 09:55 74 17 114/68 96 08/26/23 09:40 73 17 112/56 95 Intake and Output 08/26/23 08/27/23 08/27/23 22:59 06:59 14:59 Output Total 1225 Balance -1225 Output: Urine 1225 Uretheral (Herron) 200 Other: Voiding Method Indwelling Catheter # Voids 0 1 - Exam Lungs: bilateral: normal Chest: Normal S1, Normal S2 Extremities: Present: normal Abdomen: Present: normal appearance, soft. Absent: distention, tenderness Incision: Present: normal, dry, intact Uterus: Present: normal, firm - Labs Labs: Abnormal Lab Results - Last 24 Hours (Table) 08/27/23 Range/Units 06:45 RBC 3.58 L (3.80-5.40) m/uL Hgb 10.9 L (11.4-16.0) gm/dL Assessment and Plan (1) Gestational hypertension Current Visit: Yes Status: Acute Code(s): O13.9 - GESTATIONAL HTN W/O SIGNIFICANT PROTEINURIA, UNSP TRIMESTER SNOMED Code(s): 45574319 (2) S/P section Current Visit: No Status: Acute Code(s): Z98.891 - HISTORY OF UTERINE SCAR FROM PREVIOUS SURGERY SNOMED Code(s): 112938141 Plan: 1. Continue postoperative care 2. Increase ambulation
[2023-08-27 16:46] VITALS: RESP 18
[2023-08-28 10:59] VITALS: BP 134/79; PULSE 80; TEMP 97.8
--- NOTE | 2023-08-28 12:00 | P.DS ---
Providers Date of admission: 08/26/23 05:54 Expected date of discharge: 08/28/23 Attending physician: Gissell Gaspar Primary care physician: Stated None - Discharge Diagnosis(es) (1) Gestational hypertension Current Visit: Yes Status: Acute (2) S/P section Current Visit: No Status: Acute Hospital Course: Patient presented for repeat low transverse . She underwent this procedure without crepitation. She denies nausea, vomiting, chest pain, shortness of breath or calf pain. Patient will be discharged home postoperative day #2 in stable condition to follow-up with Dr. Ragland in 2 weeks. Plan - Discharge Summary Discharge Rx Participant: No New Discharge Prescriptions: New Ibuprofen [Motrin] 600 mg PO Q6H #30 tab No Action Labetalol HCl 200 mg PO BID Aspirin [Adult Low Dose Aspirin EC] 81 mg PO QAM Fluticasone Nasal [place] [Flonase Nasal [place]] 2 spray EA NOSTRIL QAM Claritin(Unknown Dose) 1 dose PO HS (Unknown Dose) 1 dose PO Discharge Medication List Aspirin [Adult Low Dose Aspirin EC] 81 mg PO QAM 04/15/21 [History] Labetalol HCl 200 mg PO BID 04/15/21 [History] Claritin(Unknown Dose) 1 dose PO HS 08/18/23 [History] Fluticasone Nasal [place] [Flonase Nasal [place]] 2 spray EA NOSTRIL QAM 08/18/23 [History] (Unknown Dose) 1 dose PO HS 08/18/23 [History] Ibuprofen [Motrin] 600 mg PO Q6H #30 tab 08/28/23 [Rx] Follow up Appointment(s)/Referral(s): Angelique Ng DO [Doctor of Osteopathic Medicine] - 2 Weeks Discharge Disposition: HOME SELF-CARE
== END 2023-08-28 14:00 | disposition home or self-care (01) | DRG 788 ==
LOC: 4FBP 05:54
PROVIDERS: ADMIT Obstetrics & Gynecology; ATTEND Obstetrics & Gynecology
PROC: 3E0234Z Introduction of Serum, Toxoid and Vaccine into Muscle, Percutaneous Approach (ICD-10-PCS; 2023-08-26)
PROC: 10D00Z1 Extraction of Products of Conception, Low, Open Approach (ICD-10-PCS; principal; 2023-08-26 08:00)
DX: O13.4 Gestational [pregnancy-induced] hypertension without significant proteinuria, complicating childbirth (principal); O99.214 Obesity complicating childbirth; E66.01 Morbid (severe) obesity due to excess calories; O26.893 Other specified pregnancy related conditions, third trimester; O34.211 Maternal care for low transverse scar from previous cesarean delivery; Z37.0 Single live birth; O99.824 Streptococcus B carrier state complicating childbirth; Z67.11 Type A blood, Rh negative; Z3A.39 39 weeks gestation of pregnancy; Z79.82 Long term (current) use of aspirin; Z79.899 Other long term (current) drug therapy
CPT/HCPCS: 85025; 85461; 86850; 86870; 86880; 86900; 86901